=== PATIENT | female | born 1985 ===

== ENCOUNTER 2023-10-20 05:21 | Day surgery (SDC) | payer OTHER ==
[2023-10-20] MEDS ORDERED: CHLORHEXIDINE GLUCONATE 120 ML BOTTLE TOP ONE (07:10)
[2023-10-20] MEDS ORDERED: POVIDONE-IODINE 118 ML BOTT TOP ONE (07:10)
[2023-10-20] MEDS ORDERED: CEFAZOLIN SODIUM 1,000 MG VIAL ONE (07:15)
[2023-10-20] MEDS ORDERED: METHYLERGONOVINE MALEATE 0.2 MG/ML AMPUL IV STA (10:14)
[2023-10-20] MEDS ORDERED: METHYLERGONOVINE MALEATE 0.2 MG/ML AMPUL IV SCH (10:15)
[2023-10-20] MEDS ORDERED: METHYLERGONOVINE MALEATE 0.2 MG/ML AMPUL ONE ×2 (10:29→15:55)
[2023-10-20] MEDS ORDERED: ONDANSETRON HCL 2 MG/ML VIAL ONE (10:46)
== END 2023-10-20 16:30 | disposition home or self-care (01) ==
LOC: CIR.AMB 05:21
PROVIDERS: ATTEND Obstetrics & Gynecology
DX: D25.0 Submucous leiomyoma of uterus (principal); N92.0 Excessive and frequent menstruation with regular cycle; H52.10 Myopia, unspecified eye; H52.209 Unspecified astigmatism, unspecified eye